=== PATIENT | female | born 1985 | race Caucasian/White ===

== ENCOUNTER 2019-01-22 19:17 | Emergency (ER) | payer OTHER ==
[~2019-01-22] VITALS: Ht 182.9 cm; Wt 108.9 kg
[2019-01-22 19:41] VITALS: BP 123/74
--- NOTE | 2019-01-22 19:48 | NUR ---
PT BIBS. C/O "HAVING SORE THROAT FOR A FEW DAYS AFTER BEING EXPOSED TO SOME CHEMICALS AT WORK" -SOB -ACUTE DISTRESS. PT AOX4. AMBULATORY W,STEADY GAIT.
== END 2019-01-22 20:35 | disposition home or self-care (01) ==
LOC: ER 19:30
DX: J70.5 Respiratory conditions due to smoke inhalation (principal)
CPT/HCPCS: Z7502